=== PATIENT | male | born 1985 | race Caucasian/White ===

== ENCOUNTER 2016-05-15 08:01 | Outpatient (CLI) | payer BC | END 2016-05-15 08:02 | disposition home or self-care (01) | LOC: NC 08:01 | PROVIDERS: ATTEND Nurse Practitioner Family | DX: R73.03 Prediabetes (principal); Z71.3 Dietary counseling and surveillance; E78.5 Hyperlipidemia, unspecified; Z87.891 Personal history of nicotine dependence ==

== ENCOUNTER 2016-06-02 15:03 | Outpatient (CLI) | payer BC | END 2016-06-02 15:04 | disposition home or self-care (01) | LOC: NC 15:03 | PROVIDERS: ATTEND Nurse Practitioner Family | DX: R73.03 Prediabetes (principal); Z71.3 Dietary counseling and surveillance ==

== ENCOUNTER 2016-07-21 15:01 | Outpatient (CLI) | payer BC | END 2016-07-21 15:02 | disposition home or self-care (01) | LOC: NC 15:01 | PROVIDERS: ATTEND Nurse Practitioner Family | DX: R73.03 Prediabetes (principal); Z71.3 Dietary counseling and surveillance; E78.5 Hyperlipidemia, unspecified; R53.83 Other fatigue ==